=== PATIENT | male | born 1970 | race African-American/Black ===

== ENCOUNTER 2022-02-10 17:46 | Inpatient (IN) | payer BC ==
[~2022-02-10] VITALS: Ht 180.3 cm; Wt 142.9 kg
[2022-02-10 18:42] LABS: CHLORIDE 104 mEq/L (98-107)
[2022-02-10] MEDS ORDERED: IOHEXOL-350 100 ML BOTTLE ONE (18:51)
[2022-02-10 18:53] LABS: BASOPHILS % 0.3 % (0.0-2.0); EOSINOPHILS % 0.1 % (0.0-5.0); ETHANOL BLOOD < 10 mg/dL; HEMATOCRIT. 47.5 % (42.0-52.0); HEMOGLOBIN. 15.8 g/dL (14.0-18.0); LYMPHOCYTES % 17.5 % (20.0-50.0); MEAN CORPUSCULAR HEMOGLOBIN 29.3 pg (28.0-32.0); MEAN CORPUSCULAR VOLUME 88.3 fL (80.0-94.0); MEAN PLATELET VOLUME 9.6 fl (7.4-10.4); MONOCYTES % 6.9 % (2.0-8.0); NEUTROPHILS % 75.2 % (40.0-76.0); PLATELET 213 x1000/uL (130-400); RED BLOOD CELL COUNT 5.37 mill/uL (4.7-6.1); RED CELL DISTRIBUTION WIDTH 13.5 % (11.6-14.6)
[2022-02-10 20:23] LABS: CLARITY URINE CLEAR (CLEAR); COLOR URINE YELLOW (YELLOW); KETONES URINE TRACE (NEGATIVE); LEUKOCYTE ESTERASE URINE NEGATIVE (NEGATIVE); NITRITE URINE NEGATIVE (NEGATIVE); OCCULT BLOOD URINE NEGATIVE (NEGATIVE); PROTEIN URINE TRACE (NEGATIVE); SPECIFIC GRAVITY URINE 1.056 (1.005-1.030); UROBILINOGEN URINE 0.2 E.U./dL (0.2-1.0)
[2022-02-10 20:38] LABS: *AMPHETAMINES SCREEN URINE NEGATIVE (NEGATIVE); *BARBITURATES SCREEN URINE NEGATIVE (NEGATIVE); *BENZODIAZEPINES SCREEN URINE NEGATIVE (NEGATIVE); *COCAINE SCREEN URINE NEGATIVE (NEGATIVE); CANNABINOID URINE SCREEN NEGATIVE (NEGATIVE); METHADONE URINE SCREEN NEGATIVE (NEGATIVE); OPIATES URINE SCREEN NEGATIVE (NEGATIVE); PHENCYCLIDINE URINE SCREEN NEGATIVE (NEGATIVE)
[2022-02-10] MEDS ORDERED: GUAIFENESIN 200MG/10ML SUGAR FREE UDC PO PRN (22:45)
[2022-02-10] MEDS ORDERED: HYDRALAZINE 20MG/ML VIAL IV PRN (22:45)
[2022-02-10] MEDS ORDERED: LORAZEPAM 2MG/ML CPJ IV PRN (22:45)
[2022-02-10] MEDS ORDERED: IPRATROPIUM/ALBUTEROL 0.5-3(2.5)MG/3ML NEB HHN PRN (22:45)
[2022-02-10] MEDS ORDERED: DOCUSATE SODIUM 100MG CAPSULE PO PRN (22:45)
[2022-02-10] MEDS ORDERED: CLONIDINE 0.1MG TABLET PO PRN (22:45)
[2022-02-10] MEDS ORDERED: MAGNESIUM/ALUMINUM HYDROXIDE/SIMETHICONE 30ML UDC PO PRN (22:45)
[2022-02-10] MEDS ORDERED: DIPHENHYDRAMINE 50MG/ML VIAL IV PRN (22:45)
[2022-02-10] MEDS ORDERED: DEXTROSE 50% WATER 50ML SYRINGE IV PRN (22:45)
[2022-02-10] MEDS ORDERED: HYDROCODONE/ACETAMINOPHEN 5/325MG TABLET PO PRN (22:45)
[2022-02-10] MEDS ORDERED: MORPHINE SULFATE 2 MG/ML CPJ (NOT FOR IM USE) IV PRN (22:45)
[2022-02-10] MEDS ORDERED: ONDANSETRON HCL 4MG/2ML INJ IV PRN (22:45)
[2022-02-10] MEDS ORDERED: ACETAMINOPHEN 325MG TABLET PO PRN (22:45)
[2022-02-10 22:55] VITALS: BP 147/96
[2022-02-10] MEDS ORDERED: DEXT 5%/0.45% NACL 1000ML 1,000 ML IV SCH (23:00)
[2022-02-10] MEDS ORDERED: NALOXONE HCL 0.4MG/ML VIAL IV PRN (23:15)
[2022-02-11] VITALS: BP 142/85
[2022-02-11 04:00] VITALS: BP 132/79
[2022-02-11] MEDS: SODIUM CHLORIDE 0.9% INJ 3ML FLUSH IVF SCH ×3 (06:01→20:27)
[2022-02-11 06:14] LABS: BASOPHILS % 0.6 % (0.0-2.0); EOSINOPHILS % 1.4 % (0.0-5.0); HEMATOCRIT. 42.5 % (42.0-52.0); HEMOGLOBIN. 14.3 g/dL (14.0-18.0); MEAN CORPUSCULAR HEMOGLOBIN 29.5 pg (28.0-32.0); MEAN CORPUSCULAR VOLUME 87.7 fL (80.0-94.0); MEAN PLATELET VOLUME 9.7 fl (7.4-10.4); MONOCYTES % 9.7 % (2.0-8.0); NEUTROPHILS % 51.3 % (40.0-76.0); PLATELET 189 x1000/uL (130-400); RED BLOOD CELL COUNT 4.85 mill/uL (4.7-6.1); RED CELL DISTRIBUTION WIDTH 13.4 % (11.6-14.6)
[2022-02-11 06:44] LABS: CHLORIDE 103 mEq/L (98-107)
[2022-02-11] MEDS: BLOOD SUGAR DIAGNOSTIC STRIP TEST SCH ×4 (07:40→20:25)
[2022-02-11 08:00] VITALS: BP 129/74
[2022-02-11] MEDS: INSULIN LISPRO 100 UNITS/ML SUBCUT SCH ×4 (08:00→20:26)
[2022-02-11] MEDS ORDERED: ENOXAPARIN 60MG/0.6ML SYR SUBCUT NR (09:00)
[2022-02-11] MEDS ORDERED: ENOXAPARIN 40MG/0.4ML SYR SUBCUT SCH (09:00)
[2022-02-11 12:00] VITALS: BP 119/80
[2022-02-11] MEDS: AMLODIPINE 5MG TABLET PO SCH (15:33)
[2022-02-11 16:00] VITALS: BP 126/80
[2022-02-11 20:00] VITALS: BP 103/62
[2022-02-11] MEDS: ENOXAPARIN 100MG/ML SYR SUBCUT SCH (20:26)
[2022-02-12] VITALS: BP 136/89
[2022-02-12 04:00] VITALS: BP 122/79
[2022-02-12] MEDS: BLOOD SUGAR DIAGNOSTIC STRIP TEST SCH ×4 (05:45→20:57)
[2022-02-12] MEDS: SODIUM CHLORIDE 0.9% INJ 3ML FLUSH IVF SCH ×3 (05:45→21:01)
[2022-02-12 06:47] LABS: PROTHROMBIN TIME 10.9 sec (9.6-11.0)
[2022-02-12 07:07] LABS: BASOPHILS % 0.5 % (0.0-2.0); EOSINOPHILS % 2.1 % (0.0-5.0); HEMOGLOBIN. 15.6 g/dL (14.0-18.0); LYMPHOCYTES % 48.4 % (20.0-50.0); MEAN CORPUSCULAR HEMOGLOBIN 29.8 pg (28.0-32.0); MEAN CORPUSCULAR VOLUME 87.6 fL (80.0-94.0); MEAN PLATELET VOLUME 9.7 fl (7.4-10.4); MONOCYTES % 7.7 % (2.0-8.0); NEUTROPHILS % 41.3 % (40.0-76.0); PLATELET 198 x1000/uL (130-400); RED BLOOD CELL COUNT 5.25 mill/uL (4.7-6.1); RED CELL DISTRIBUTION WIDTH 13.6 % (11.6-14.6)
[2022-02-12 07:34] LABS: CHLORIDE 103 mEq/L (98-107)
[2022-02-12 08:00] VITALS: BP 153/92
[2022-02-12] MEDS: AMLODIPINE 5MG TABLET PO SCH (08:15)
[2022-02-12] MEDS: INSULIN LISPRO 100 UNITS/ML SUBCUT SCH ×4 (08:16→20:58)
[2022-02-12] MEDS: ENOXAPARIN 100MG/ML SYR SUBCUT SCH (08:16)
[2022-02-12 12:00] VITALS: BP 134/87
[2022-02-12] MEDS ORDERED: XALAO EACHEYE (12:40)
[2022-02-12] MEDS ORDERED: ALLO100T PO (12:40)
[2022-02-12] MEDS ORDERED: BENA40TA91 PO (12:40)
[2022-02-12] MEDS ORDERED: COLC0.6C3 PO (12:40)
[2022-02-12] MEDS ORDERED: DULA1.5P SQ (12:40)
[2022-02-12] MEDS ORDERED: METF-873 PO (12:40)
[2022-02-12] MEDS ORDERED: BUPR450T3 PO (12:40)
[2022-02-12] MEDS ORDERED: EMPA25TA PO (12:40)
[2022-02-12] MEDS ORDERED: OMEG-31 PO (12:40)
[2022-02-12] MEDS ORDERED: ATOR40TA70 PO (12:40)
[2022-02-12 16:01] VITALS: BP 142/89
[2022-02-12] MEDS: ENOXAPARIN 150MG/ML SYR SUBCUT SCH (17:07)
[2022-02-12 20:00] VITALS: BP 128/78
[2022-02-12] MEDS: CARVEDILOL 3.125 MG TABLET PO SCH (20:57)
[2022-02-12] MEDS: ATORVASTATIN CALCIUM 40MG TABLET PO SCH (20:57)
[2022-02-13] VITALS: BP 131/84
[2022-02-13 04:00] VITALS: BP 130/83
[2022-02-13] MEDS: BLOOD SUGAR DIAGNOSTIC STRIP TEST SCH ×4 (05:53→20:54)
[2022-02-13] MEDS: ENOXAPARIN 150MG/ML SYR SUBCUT SCH (05:53)
[2022-02-13] MEDS: SODIUM CHLORIDE 0.9% INJ 3ML FLUSH IVF SCH ×3 (05:53→20:50)
[2022-02-13 06:32] LABS: BASOPHILS % 0.5 % (0.0-2.0); EOSINOPHILS % 1.7 % (0.0-5.0); HEMATOCRIT. 46.4 % (42.0-52.0); HEMOGLOBIN. 15.6 g/dL (14.0-18.0); LYMPHOCYTES % 49.4 % (20.0-50.0); MEAN CORPUSCULAR HEMOGLOBIN 29.6 pg (28.0-32.0); MEAN PLATELET VOLUME 9.2 fl (7.4-10.4); MONOCYTES % 9.1 % (2.0-8.0); NEUTROPHILS % 39.3 % (40.0-76.0); PLATELET 190 x1000/uL (130-400); RED BLOOD CELL COUNT 5.27 mill/uL (4.7-6.1); RED CELL DISTRIBUTION WIDTH 13.3 % (11.6-14.6)
[2022-02-13 08:00] VITALS: BP 143/86
[2022-02-13 08:03] LABS: CHLORIDE 107 mEq/L (98-107)
[2022-02-13] MEDS: CARVEDILOL 3.125 MG TABLET PO SCH ×2 (08:37→20:50)
[2022-02-13] MEDS: AMLODIPINE 5MG TABLET PO SCH (08:37)
[2022-02-13] MEDS: INSULIN LISPRO 100 UNITS/ML SUBCUT SCH ×4 (08:38→21:00)
[2022-02-13 12:00] VITALS: BP 138/64
[2022-02-13 16:00] VITALS: BP 134/65
[2022-02-13] MEDS: APIXABAN 5 MG TABLET PO SCH (17:48)
[2022-02-13 20:00] VITALS: BP 116/77
[2022-02-13] MEDS: ATORVASTATIN CALCIUM 40MG TABLET PO SCH (20:50)
[2022-02-14 00:01] VITALS: BP 121/69
[2022-02-14 04:00] VITALS: BP 133/76
[2022-02-14] MEDS: SODIUM CHLORIDE 0.9% INJ 3ML FLUSH IVF SCH ×3 (05:25→20:39)
[2022-02-14] MEDS: BLOOD SUGAR DIAGNOSTIC STRIP TEST SCH ×4 (05:25→20:33)
[2022-02-14] MEDS: INSULIN LISPRO 100 UNITS/ML SUBCUT SCH ×4 (05:30→20:39)
[2022-02-14 06:59] LABS: HEMATOCRIT 45.3 % (42.0-52.0); HEMOGLOBIN 15.5 g/dL (14.0-18.0); MEAN CORPUSCULAR HEMOGLOBIN 29.8 pg (28.0-32.0); MEAN CORPUSCULAR VOLUME 87.1 fL (80.0-94.0); PLATELET 200 x1000/uL (130-400); RED CELL DISTRIBUTION WIDTH 13.5 % (11.6-14.6)
[2022-02-14 07:47] LABS: CHLORIDE 107 mEq/L (98-107)
[2022-02-14 08:00] VITALS: BP 131/93
[2022-02-14] MEDS: CARVEDILOL 3.125 MG TABLET PO SCH ×2 (08:34→20:33)
[2022-02-14] MEDS: APIXABAN 5 MG TABLET PO SCH ×2 (08:34→17:39)
[2022-02-14] MEDS: AMLODIPINE 5MG TABLET PO SCH (08:35)
[2022-02-14 12:00] VITALS: BP 105/79
[2022-02-14 16:00] VITALS: BP 128/74
[2022-02-14 20:00] VITALS: BP 118/65
[2022-02-14] MEDS: ATORVASTATIN CALCIUM 40MG TABLET PO SCH (20:33)
[2022-02-15 00:05] VITALS: BP 121/73
[2022-02-15 04:00] VITALS: BP 129/71
[2022-02-15] MEDS: SODIUM CHLORIDE 0.9% INJ 3ML FLUSH IVF SCH ×2 (05:23→14:00)
[2022-02-15] MEDS: BLOOD SUGAR DIAGNOSTIC STRIP TEST SCH ×3 (05:23→17:09)
[2022-02-15] MEDS: INSULIN LISPRO 100 UNITS/ML SUBCUT SCH ×3 (05:35→17:13)
[2022-02-15 08:00] VITALS: BP 119/75
[2022-02-15] MEDS: AMLODIPINE 5MG TABLET PO SCH (08:13)
[2022-02-15] MEDS: APIXABAN 5 MG TABLET PO SCH ×2 (08:13→17:13)
[2022-02-15] MEDS: CARVEDILOL 3.125 MG TABLET PO SCH (08:14)
[2022-02-15 12:00] VITALS: BP 125/70
[2022-02-15 16:00] VITALS: BP 121/75
[2022-02-15 18:52] VITALS: BP 127/95
== END 2022-02-15 20:25 | disposition home or self-care (01) | DRG 637 ==
LOC: ER 17:46 → EDBEDREQTM 18:31 → EDBEDREQ 18:31 → 7WST 20:43 → EDBEDREQ 21:02 → EDBEDREQTM 21:02 → EDBEDREQSVC 21:02 → ENRESERV 22:18
PROVIDERS: ADMIT Internal Medicine; ATTEND Internal Medicine
DX: E11.65 Type 2 diabetes mellitus with hyperglycemia (principal); N17.0 Acute kidney failure with tubular necrosis; G45.9 Transient cerebral ischemic attack, unspecified; I82.412 Acute embolism and thrombosis of left femoral vein; R65.10 Systemic inflammatory response syndrome (SIRS) of non-infectious origin without acute organ dysfunction; I42.9 Cardiomyopathy, unspecified; Z68.41 Body mass index [BMI] 40.0-44.9, adult; F32.A Depression, unspecified; R47.1 Dysarthria and anarthria; E78.5 Hyperlipidemia, unspecified; F41.0 Panic disorder [episodic paroxysmal anxiety]; R47.81 Slurred speech; F15.90 Other stimulant use, unspecified, uncomplicated; I11.9 Hypertensive heart disease without heart failure; Z20.822 Contact with and (suspected) exposure to COVID-19; Z79.899 Other long term (current) drug therapy; E66.01 Morbid (severe) obesity due to excess calories
CPT/HCPCS: 36415; 70496; 70498; 70551; 71045; 80048; 80053; 80061; 80305; 80320; 81003; 82962; 84484; 85025; 85027; 87426; 92610; 93005; 93306; 93970; 97161; 99285; C9803; J1650; J1815; Q9967; G0480